=== PATIENT | male | born 1960 | race African-American/Black ===

== ENCOUNTER 2023-01-12 10:35 | Outpatient (CLI) | payer OTHER | END 2023-01-12 10:36 | disposition home or self-care (01) | LOC: CSHMRI 10:35 | PROVIDERS: ATTEND Surgery | DX: M54.51 Vertebrogenic low back pain (principal); M47.816 Spondylosis without myelopathy or radiculopathy, lumbar region; M48.061 Spinal stenosis, lumbar region without neurogenic claudication | CPT/HCPCS: 72110; 72148 ==